=== PATIENT | male | born 1970 | race Caucasian/White ===

== ENCOUNTER → 2016-09-02 | Outpatient (CLI) | payer BC ==
--- NOTE | 2016-09-02 11:09 | MR ---
EXAMINATION TYPE: MR lumbar spine wo con DATE OF EXAM: 09/02/2016 9:20 AM COMPARISON: NONE HISTORY: Low back pain TECHNIQUE: Multiplanar, multisequence images of the lumbar spine were acquired. T12-L1 shows a small right posterior paracentral disc bulge causing some minimal anterolateral mass e ffect on the thecal sac. L1-L2: Small circumferential disc bulge causes slight anterior mass effect on the thecal sac, no sign ificant central stenosis or foraminal encroachment. L2-L3: There is a central posterior disc herniation causing anterior mass effect on the thecal sac wi th only mild central stenosis. No significant foraminal encroachment. L3-L4: Normal disc appearance without desiccation. No herniation, protrusion or disc bulging. No ca nal stenosis is present. Circumferential extension of endplate disc complex causes some foraminal enc roachment, there may be short pedicles. L4-L5: Normal disc appearance without desiccation. No herniation, protrusion or disc bulging. No ca nal stenosis is present. There is some facet arthropathy change bilaterally. Circumferential extensio n endplate disc complex contributes to cause some foraminal encroachment bilaterally. L5-S1: There is anterolisthesis grade 1 L5-S1. Bilateral spondylolysis L5 is present. Listhesis contr ibutes to cause bilateral foraminal encroachment, no significant central stenosis or sizable disc her niation. Facet arthropathy changes present. There is multilevel spondylosis. Some associated loss of disc height and signal is greatest at L5-S1, L2-3, L1-2, T12-L1 and associated endplate disc signal change. No paraspinal masses are identified. Conus medullaris has a normal appearance. IMPRESSION: Spondylolisthesis, spondylolysis as described L5-S1, multilevel degenerative disc disease, facet arth ropathy, foraminal encroachment.
== END | disposition home or self-care (01) ==
LOC: RADMRIMAIN 08:43
PROVIDERS: ATTEND Internal Medicine
DX: M43.17 Spondylolisthesis, lumbosacral region (principal); M51.36 Other intervertebral disc degeneration, lumbar region; M46.96 Unspecified inflammatory spondylopathy, lumbar region
CPT/HCPCS: 72148

== ENCOUNTER 2019-01-20 10:40 | Emergency (ER) | payer BC ==
--- NOTE | 2019-01-20 11:08 | ED ---
Upper Extremity HPI - General Chief Complaint: Extremity Injury, Upper Stated Complaint: Shoulder pain Time Seen by Provider: 01/20/19 10:55 Source: patient Mode of arrival: ambulatory Limitations: no limitations - History of Present Illness Initial Comments: Patient is a 48-year-old male complaining to the emergency Department with complaints of left shoulder pain since yesterday. Patient states he was attempting to lower a Rototiller off of a ramp when it slipped off to the side and he attempted to hold onto it and not let it Over with his left arm. Patient states he had a pain in his left bicep area that did wake him up during the night. Patient states he wants to make sure he didn't tear anything. Patient has no previous injuries of his left shoulder. Patient states he is right-hand dominant. No other complaints at this time. - Related Data Home Medications Medication Instructions Recorded Confirmed Atorvastatin Calcium [Lipitor] 40 mg PO HS 10/08/16 01/20/19 Citalopram Hydrobromide [CeleXA] 40 mg PO DAILY 01/20/19 01/20/19 Ibuprofen [Motrin] 800 mg PO TID PRN 01/20/19 01/20/19 Lisinopril-Hctz 20-12.5 mg 1 tab PO DAILY 01/20/19 01/20/19 [Zestoretic 20-12.5] Allergies Allergy/AdvReac Type Severity Reaction Status Date / Time Penicillins Allergy throat and Verified 01/20/19 11:17 face swelling Review of Systems ROS Statement: Those systems with pertinent positive or pertinent negative responses have been documented in the HPI. ROS Other: All systems not noted in ROS Statement are negative. Past Medical History Past Medical History: Hyperlipidemia, Hypertension, Skin Disorder Additional Past Medical History / Comment(s): hx pain LRQ of abdomen, rash on cheek, History of Any Multi-Drug Resistant Organisms: None Reported Additional Past Surgical History / Comment(s): lump removed from neck age 1, Past Anesthesia/Blood Transfusion Reactions: No Reported Reaction Past Psychological History: Anxiety Smoking Status: Former smoker Past Alcohol Use History: None Reported Past Drug Use History: None Reported - Past Family History Sister(s) Family Medical History: Cancer Mother Family Medical History: Deep Vein Thrombosis (DVT), Pulmonary Embolus General Exam - General Exam Comments Initial Comments: GENERAL: Well-appearing, well-nourished and in no acute distress. HEAD: Atraumatic, normocephalic. EYES: Pupils equal round and reactive to light, extraocular movements intact, sclera anicteric, conjunctiva are normal. ENT: TMs normal, nares patent, oropharynx clear without exudates. Moist mucous membranes. NECK: Normal range of motion, supple without lymphadenopathy or JVD. LUNGS: Breath sounds clear to auscultation bilaterally and equal. No wheezes rales or rhonchi. HEART: Regular rate and rhythm without murmurs, rubs or gallops. ABDOMEN: Soft, nontender, normoactive bowel sounds. No guarding, no rebound. No masses appreciated. : Deferred EXTREMITIES: Patient has full range of motion of his left shoulder with soreness at the end ranges. Patient is neurovascular intact. Biceps strength is 5 out of 5 on left. No pitting or edema. No clubbing or cyanosis. NEUROLOGICAL: Cranial nerves II through XII grossly intact. Normal speech, normal gait. PSYCH: Normal mood, normal affect. SKIN: Warm, Dry, normal turgor, no rashes or lesions noted. Limitations: no limitations Course Vital Signs 01/20/19 01/20/19 10:42 13:10 Temperature 98.2 F 97.9 F Pulse Rate 90 83 Respiratory 18 16 Rate Blood Pressure 133/88 123/86 O2 Sat by Pulse 99 98 Oximetry Medical Decision Making - Medical Decision Making Patient is a 48-year-old male complains of left shoulder pain after trying to st op a large rotor tiller from falling off of a ramp. Patient's pain is located in the anterior aspect of the left shoulder and biceps tendon. On exam patient has full range of motion of his left shoulder. Patient is neurovascular intact. Patient is tender over the bicipital groove, and the proximal biceps muscle. X-ray showed no acute fractures or dislocations. Was discussed with patient has is most likely a muscle strain or mild tendon injury. Patient will follow up with his PCP as needed for continued pain. Patient will ice the area and take ibuprofen for pain relief. Return parameters were discussed with the patient and he verbalized understanding. Case discussed with Dr. Islas. Disposition Clinical Impression: Left shoulder pain Disposition: HOME SELF-CARE Condition: Stable Instructions (If sedation given, give patient instructions): Shoulder Pain (ED) Additional Instructions: Please return to the Emergency Department if symptoms worsen or any other concerns. Follow-up with PCP as needed. Is patient prescribed a controlled substance at d/c from ED?: No Referrals: None,Stated [Primary Care Provider] - 1-2 days
--- NOTE | 2019-01-20 11:48 | XR ---
EXAMINATION TYPE: XR shoulder complete LT DATE OF EXAM: 01/20/2019 CLINICAL HISTORY: Left shoulder pain TECHNIQUE: Three views of the left shoulder are obtained. COMPARISON: None. FINDINGS: There is no acute fracture/dislocation evident in the left shoulder. The acromioclavicula r demonstrates mild acromioclavicular arthropathy with small marginal osteophytes. The glenohumeral j oint space appears within normal limits. The visualized ribs are intact and unremarkable. IMPRESSION: There is no acute fracture or dislocation in the left shoulder.
[2019-01-20 13:11] VITALS: BP 123/86; PULSE 83; RESP 16; TEMP 97.9
== END 2019-01-20 13:10 | disposition home or self-care (01) ==
LOC: SUPCPDRO 10:40 → EC 10:40
DX: M25.512 Pain in left shoulder (principal); E78.5 Hyperlipidemia, unspecified; I10 Essential (primary) hypertension; F41.9 Anxiety disorder, unspecified; Z87.891 Personal history of nicotine dependence; Z88.0 Allergy status to penicillin; Z79.899 Other long term (current) drug therapy; X50.0XXA Overexertion from strenuous movement or load, initial encounter; Y93.89 Activity, other specified
CPT/HCPCS: 99283

== ENCOUNTER → 2020-07-23 | Outpatient (CLI) | payer BC ==
--- NOTE | 2020-07-23 11:51 | XR ---
Lumbar spine HISTORY: Low back pain 3 views lumbar spine, correlation MR lumbar spine 09/02/2016 There is multilevel spondylosis. Lumbar vertebral bodies show preserved height, alignment, and bone m ineralization. There is loss of disc height and intervertebral level L5-S1, there is anterolisthesis grade 1 to grade 2 L5-S1. There is bilateral spondylolysis at L5. Vacuum disc phenomenon also noted. Some minimal blunting the posterior costophrenic angle noted incidentally. Sclerosis present in the p osterior elements of the lumbar spine. IMPRESSION: Spondylolysis, spinal listhesis, degenerative disc disease. Facet arthropathy. There may be a small pleural effusion.
== END | disposition home or self-care (01) ==
LOC: RADXRMAIN 11:29
PROVIDERS: ATTEND Internal Medicine Geriatric Medicine
DX: M43.16 Spondylolisthesis, lumbar region (principal); M51.36 Other intervertebral disc degeneration, lumbar region; M47.816 Spondylosis without myelopathy or radiculopathy, lumbar region
CPT/HCPCS: 72100

== ENCOUNTER → 2020-08-24 | Outpatient (CLI) | payer BC ==
--- NOTE | 2020-08-24 09:14 | MR ---
EXAMINATION TYPE: MR lumbar spine wo con DATE OF EXAM: 08/24/2020 COMPARISON: MRI lumbar spine September 02, 2016. Lumbar spine x-ray July 23, 2020 HISTORY: Low back pain for 3 to 4 years per patient, lumbago. Pain into bilateral buttocks per patien t. TECHNIQUE: Multiplanar, multisequence imaging of the lumbar spine is performed without IV contrast. FINDINGS: Sagittal images of the lumbar spine show vertebral body heights to remain satisfactory. Per sistent stable grade 1 anterolisthesis L5 on S1. Multilevel disc desiccation redemonstrated. Mild di sc space narrowing L5-S1 level redemonstrated. The conus medullaris remains normal in position ending at L1 level. Mild multilevel anterior spurring. Heterogeneous Modic type II endplate change and ante rior superior L2 endplate. Axial images at the T12-L1 level shows mild to moderate broad disc bulge with central disc protrusion component effacing the anterior thecal sac. No significant change from prior. Axial images at L1-L2 show mild broad disc bulge minimally effaces the anterior thecal sac, no signif icant change from prior. Axial images at L2-L3 level show moderate to advanced broad disc bulge with central disc protrusion c omponent effacing the anterior thecal sac and mild left-sided anterior inferior neural foraminal narr owing. No significant change from prior. Axial images at L3-L4 level show mild broad disc bulge. Spinal canal preserved. Neural foramina are p atent. No significant change from prior. Axial images at L4-L5 level show mild to moderate broad disc bulge and facet arthropathy bilaterally. Spinal canal is preserved. There is fairly moderate bilateral neural foraminal narrowing redemonstra ema. Some encroachment on exiting bilateral L4 nerves felt to be demonstrated on sagittal images, thi s is less well visualized on axial images. Axial images at L5-S1 levels with spondylolisthesis secondary to bilateral pars defects. Spinal canal preserved. Moderate bilateral facet arthropathy. Moderate to severe bilateral neural foraminal narro wing likely encroaching on exiting bilateral nerve on axial and sagittal images. No significant gomez e from prior. Paraspinal muscle bulk preserved. Stable cystic prominence left kidney favoring central parapelvic cy sts and extrarenal pelvis over hydronephrosis. IMPRESSION: Stable spondylolisthesis L5-S1 level. Stable multilevel degenerative changes greatest at L2-L3, L4-L5, and L5-S1 levels as detailed above.
== END ==
LOC: RADMRIMAIN 08:07
PROVIDERS: ATTEND Psychiatry & Neurology Neurology
DX: M43.17 Spondylolisthesis, lumbosacral region (principal); M51.25 Other intervertebral disc displacement, thoracolumbar region
CPT/HCPCS: 72148

== ENCOUNTER → 2020-11-02 | Outpatient (CLI) | payer BC ==
--- NOTE | 2020-11-02 07:27 | US ---
EXAMINATION TYPE: US kidneys/renal and bladder DATE OF EXAM: 11/02/2020 COMPARISON: MRI 08/24/2020 CLINICAL HISTORY: N28.1 Acquired multiple cysts of kidney. Renal cysts. EXAM MEASUREMENTS: Right Kidney: 12.9 x 6.7 x 6.5 cm Left Kidney: 12.6 x 6.4 x 6.2 cm No renal cysts identified. Right Kidney: No hydronephrosis or masses seen Left Kidney: No hydronephrosis or masses seen Bladder: wnl Bilateral Jets seen: No There is no evidence for hydronephrosis at this point in time. No nephrolithiasis is seen. No maria luisa s are identified. The urinary bladder is anechoic. Symmetric size of the kidneys. IMPRESSION: Normal size kidneys without hydronephrosis or nephrolithiasis.
== END | disposition home or self-care (01) ==
LOC: RADUSWWP 07:04
PROVIDERS: ATTEND Internal Medicine Geriatric Medicine
DX: N28.1 Cyst of kidney, acquired (principal)
CPT/HCPCS: 76770

== ENCOUNTER → 2022-06-06 | Outpatient (CLI) | payer BC ==
--- NOTE | 2022-06-06 11:59 | XR ---
EXAM TYPE: LUMBAR SPINE X RAY SERIES COMPARISON: 07/23/2020, 06/26/2021 HISTORY: Pain TECHNIQUE: 4 views are submitted. FINDINGS: Alignment is anatomic. The pedicles are intact. The transverse processes are intact. There is no h ypertrophic and multilevel degenerative disc disease with grade 1 anterolisthesis L5 on S1 with suspe cted bilateral spondylolysis. Multilevel facet arthropathy. Foraminal encroachment L4-5 and L5-S1. Se magdalena degenerative disc disease L5-S1 and T12-L1. IMPRESSION: 1. Bilateral spondylolysis with grade 1 anterolisthesis L5 on S1. 2. Multilevel degenerative disc disease and spurring. Facet arthropathy pronounced at L4-5 and L5-S1 with suspected bilateral foraminal encroachment at these levels
== END | disposition home or self-care (01) ==
LOC: RADXRMAIN 11:30
PROVIDERS: ATTEND Internal Medicine
DX: M47.27 Other spondylosis with radiculopathy, lumbosacral region (principal); M51.16 Intervertebral disc disorders with radiculopathy, lumbar region; M43.17 Spondylolisthesis, lumbosacral region
CPT/HCPCS: 72110

== ENCOUNTER → 2024-04-27 | Outpatient (CLI) | payer BC ==
--- NOTE | 2024-04-28 10:09 | CA ---
Transthoracic Echo Report Name: Michael Levy Age: 54 Gender: M : 1970 Exam Date: 04/27/2024 17:48 Exam Location: [facility] Ht (in): 68 Wt (lb): 205 Ordering Physician: Tobi Lorenzo MD Attending/Referring Phys: Tobi Lorenzo MD Ground Equipment Mechanic Minal Dill, TALISHA Procedure CPT: Indications: Z01.810 PREPROCEDURAL CARDIOVASC EXAM Cardiac Hx: Technical Quality: Fair Contrast 1: Total Dose (mL): Contrast 2: Total Dose (mL): MEASUREMENTS (Male / Female) Normal Values 2D ECHO LV Diastolic Diameter PLAX 5.2 cm 4.2 - 5.9 / 3.9 - 5.3 cm LV Systolic Diameter PLAX 3.6 cm IVS Diastolic Thickness 1.1 cm 0.6 - 1.0 / 0.6 - 0.9 cm LVPW Diastolic Thickness 1.0 cm 0.6 - 1.0 / 0.6 - 0.9 cm LV Relative Wall Thickness 0.4 RV Internal Dim ED PLAX 3.1 cm LA Systolic Diameter LX 3.8 cm 3.0 - 4.0 / 2.7 - 3.8 cm LV Diastolic Volume MOD 4C 103.8 cm??? LV Systolic Volume MOD 4C 44.5 cm??? LV Ejection Fraction MOD 4C 57.2 % LV Cardiac Index MOD 4C 2662.1 cm???/min???m??? LV Diastolic Length 4C 8.5 cm LV Systolic Length 4C 7.3 cm LV Diastolic Volume MOD 2C 126.1 cm??? LV Systolic Volume MOD 2C 50.4 cm??? LV Ejection Fraction MOD 2C 60.0 % LV Cardiac Index MOD 2C 3394.2 cm???/min???m??? LV Diastolic Length 2C 9.2 cm LV Systolic Length 2C 7.4 cm M-MODE Aortic Root Diameter MM 4.4 cm LA Systolic Diameter MM 2.3 cm LA Ao Ratio MM 0.5 DOPPLER AV Peak Velocity 185.4 cm/s AV Peak Gradient 13.8 mmHg AV Mean Velocity 119.0 cm/s AV Mean Gradient 6.4 mmHg AV Velocity Time Integral 30.2 cm AI Peak Velocity 313.1 cm/s AI Peak Gradient 39.2 mmHg AI Pressure Half Time 484.1 ms LVOT Peak Velocity 158.7 cm/s LVOT Peak Gradient 10.1 mmHg LVOT Velocity Time Integral 26.8 cm Mitral E Point Velocity 89.0 cm/s Mitral A Point Velocity 98.3 cm/s Mitral E to A Ratio 0.9 MV Deceleration Time 256.8 ms MV E' Velocity 10.1 cm/s Mitral E to MV E' Ratio 8.8 FINDINGS Left Ventricle Left ventricular ejection fraction is estimated at 55-60 %. Left ventricular cavity size normal. Mildly increased septal wall thickness. Normal left ventricular wall motion. Right Ventricle Normal right ventricular size and function. Unable to estimate the right ventricular systolic pressure. Right Atrium Normal right atrial size. No right atrial thrombus or mass seen. Left Atrium Normal left atrial size. No left atrial thrombus or mass present. Mitral Valve Structurally normal mitral valve. No mitral stenosis, regurgitation or prolapse. Aortic Valve Aortic valve not well visualized. Possible bicuspid aortic valve. Mild aortic regurgitation. Tricuspid Valve Structurally normal tricuspid valve. No tricuspid stenosis, regurgitation or prolapse. Pulmonic Valve Pulmonic valve not well visualized. Pericardium No pericardial or pleural effusion. Aorta Moderate aortic dilatation at the level of the sinuses of valsalva 41 mm. Ascending aorta aneurysm up to 47 mm CONCLUSIONS Normal LV function Ascending aortic and an aneurysm measuring 4.7 cm Mild aortic regurgitation with possible bicuspid aortic valve Previewed by: Dr. Cesar Julian MD (Electronically Signed) Final Date: 28 April 2024 10:08
== END | disposition home or self-care (01) ==
LOC: RADECHMAIN 17:41
PROVIDERS: ATTEND Internal Medicine
DX: Z01.810 Encounter for preprocedural cardiovascular examination (principal); I35.1 Nonrheumatic aortic (valve) insufficiency
CPT/HCPCS: 93306

== ENCOUNTER → 2024-05-06 | Outpatient (CLI) | payer BC ==
--- NOTE | 2024-05-06 12:19 | CT ---
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 MIP images are created and reviewed. CT DLP: 1018.[address] CTDI: mGy Automated exposure control for dose reduction was used. FINDINGS: There is marked dilatation of the aortic root measuring 4.6 cm. The ascending thoracic aorta is nondi lated and measures 3.8 cm. There is no cardiomegaly. There is no mediastinal, hilar or axillary adenopathy.2 the graft and no filling defects within the p ulmonary arterial circulation to suggest pulmonary embolism. There is no airspace consolidation or ab normal interstitial density. There is no pleural effusion or pneumothorax. There are no suspicious lung masses or nodules. No focal osseous lesions are seen in the osseous stru ctures are intact. IMPRESSION: 1. Marked dilatation of the aortic root which measures 4.6 cm. 2. No suspicious lung mass or nodule. 3. No acute cardiopulmonary disease. [facility], , 05/06/2024 12:17 PM
== END | disposition home or self-care (01) ==
LOC: RADCTMAIN 11:06
PROVIDERS: ATTEND Internal Medicine Interventional Cardiology
DX: I71.20 Thoracic aortic aneurysm, without rupture, unspecified (principal); Z86.79 Personal history of other diseases of the circulatory system
CPT/HCPCS: 71275; Q9967

== ENCOUNTER → 2024-06-30 | Outpatient (CLI) | payer BC | END | disposition home or self-care (01) | LOC: LABWHC1 10:44 | PROVIDERS: ATTEND Internal Medicine | DX: Z00.00 Encounter for general adult medical examination without abnormal findings (principal); E55.9 Vitamin D deficiency, unspecified; R73.03 Prediabetes; E78.2 Mixed hyperlipidemia; I10 Essential (primary) hypertension; Z79.899 Other long term (current) drug therapy; N40.0 Benign prostatic hyperplasia without lower urinary tract symptoms ==

== ENCOUNTER → 2024-06-30 | Outpatient (CLI) | payer BC ==
[2024-06-30 15:03] LABS: Basophils # (A) 0.07 X 10*3/uL (0.00-0.10); Basophils % (A) 0.6 %; Eosinophils # (A) 0.28 X 10*3/uL (0.04-0.35); Eosinophils % (A) 2.6 %; HCT 42.7 % (39.6-50.0); HGB 14.5 g/dL (13.0-17.0); Lymphocytes # (A) 3.43 X 10*3/uL (0.90-5.00); Lymphocytes % (A) 31.7 %; MCV 88.2 FL (80.0-97.0); Mean Platelet Volume 10.4 FL (9.5-12.2); Monocytes # (A) 0.97 X 10*3/uL (0.20-1.00); NRBC Per 100 WBC 0 X 10*3/uL (0.00-0.01); Neutrophils # (A) 6.04 X 10*3/uL (1.80-7.70); Neutrophils % (A) 55.7 %; Platelet Count 279 X 10*3/uL (140-440); RBC 4.84 X 10*6/uL (4.40-5.60); RDW 12.9 % (11.5-14.5); WBC 10.83 X 10*3/uL (4.50-10.00)
[2024-06-30 15:41] LABS: ALT 39 U/L (10-49); AST 25 U/L (14-35); Albumin 4.3 g/dL (3.8-4.9); Albumin/Globulin Ratio 2.05 Ratio (1.60-3.17); Alkaline Phosphatase 107 U/L (41-126); Blood Urea Nitrogen 15.6 mg/dL (9.0-27.0); Calcium 9.5 mg/dL (8.7-10.3); Carbon Dioxide 21.5 mmol/L (21.6-31.8); Chloride 100 mmol/L (96-109); Chol/HDL Ratio 3.21 Ratio; Globulin 2.1 g/dL (1.6-3.3); Glucose 114 mg/dL (70-110); LDL Cholesterol,Calculated 96.8 mg/dL (0.0-131.0); Magnesium 1.8 mg/dL (1.5-2.4); Prostate Specific Antigen 0.32 ng/mL (0.000-3.500); Sodium 133 mmol/L (135-145); Total Bilirubin 0.4 mg/dL (0.3-1.2); Total Protein 6.4 g/dL (6.2-8.2); Uric Acid 4.6 mg/dL (3.7-8.7); VLDL Calculation 13.28 mg/dL (5.00-40.00)
== END | disposition home or self-care (01) ==
LOC: LABPAT 10:47
PROVIDERS: ATTEND Internal Medicine
DX: Z01.812 Encounter for preprocedural laboratory examination (principal); I10 Essential (primary) hypertension; I35.1 Nonrheumatic aortic (valve) insufficiency; E78.2 Mixed hyperlipidemia; N40.0 Benign prostatic hyperplasia without lower urinary tract symptoms; E55.9 Vitamin D deficiency, unspecified; R73.03 Prediabetes; Z79.899 Other long term (current) drug therapy; Z22.322 Carrier or suspected carrier of Methicillin resistant Staphylococcus aureus
CPT/HCPCS: 80053; 80061; 82306; 83036; 83735; 84153; 84443; 84550; 85025

== ENCOUNTER → 2024-07-05 | Day surgery (SDC) | payer BC ==
[~2024-07-05] MED LIST: ALPRAZolam 0.25 MG TAB PO PRN; ALPRAZolam 0.5 MG TAB PO PRN; NITROGLYCERIN SL TABS 0.4 MG TAB SUBLINGUAL PRN; RX INFO: IV CONTRAST WAS GIVEN 1 EACH MISC MISCELLANE PRN; SODIUM CHLORIDE 0.9% 1,000 ML IV SCH
[2024-07-05] MEDS: ASPIRIN 325 MG TAB PO STA (05:54)
[2024-07-05] MEDS: SODIUM CHLORIDE 0.9% 1,000 ML in EMPTY BAG 1 BAG IV SCH (11:13)
[2024-07-05] MEDS: IV FLUID CONTINUATION 1,000 ML IV ONE ×3 (11:13→16:26)
[2024-07-05 11:31] VITALS: TEMP 98
[2024-07-05] MEDS: BENZOCAINE SPRAY 1 EACH MM ONE (12:17)
[2024-07-05] MEDS: fentaNYL (PF) 50 MCG/ML 2 ML AMP IVP ONE (12:46)
[2024-07-05] MEDS: MIDAZOLAM 2 MG/2 ML VIAL IVP ONE ×2 (12:46→13:05)
--- NOTE | 2024-07-05 12:56 | P.PCN ---
Date of Procedure: 07/05/24 Operative Findings: TRANSESOPHAGEAL ECHOCARDIOGRAM FENDER MECHANIC: YAZ MOORE MD, RPVI INDICATION: Rule out bicuspid valve SEDATION: Conscious sedation COMPLICATION: None LEVEL OF SEDATION Moderate sedation length of illness PROCEDURE DESCRIPTION: After obtaining an informed consent, the patient was brought to transesophageal echocardiogram room. Pulse oximetry and heart monitors were attached to the patient. The patient throat was sprayed using lidocaine. The patient was turned into left lateral position. After that a bite guard was placed. After an appropriate conscious sedation was initiated, the transesophageal echocardiogram was advanced through a bite guard into the mid esophagus. A 2-D echocardiogram images, color Doppler images, continuous wave images, pulse-wave images, of various cardiac structure were performed. After that the transesophageal echocardiogram probe was advanced into the stomach and fixed to obtain transgastric view was. The probe was brought into the mid esophagus. Inter-atrial septum was interrogated using 2D images, color Doppler images, and then contrast study. After that transesophageal echocardiogram was withdrawn out and upon withdrawing the descending thoracic aorta all the way up to the arch was evaluated. CONCLUSION: 1. Trileaflet aortic valve with mild to moderate aortic insufficiency only 2. Normal LV systolic function with no wall motion abnormalities 3. 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 Mildly dilated right atrium and right ventricle 5. Intact left atrial appendage 6. Dilated aortic root at 4.0 cm and ascending aorta at 3.8 cm
[2024-07-05] MEDS: LIDOCAINE 1% INJ 10MG/ML (20 ML MDV) SQ ONE (13:00)
[2024-07-05] MEDS: VERAPAMIL SYRINGE (5 MG/10 ML) INTRAARTER ONE (13:01)
[2024-07-05] MEDS: HEPARIN SODIUM 1,000 UN/ML (10ML VL) IVP ONE (13:05)
[2024-07-05] MEDS: HEPARIN SODIUM,PORCINE 10,000 UNIT in SODIUM CHLORIDE 0.9% 1,000 ML IRRIGATION PRN (13:07)
[2024-07-05] MEDS: HEPARIN SODIUM,PORCINE (1 ML) 2,500 UNIT in SODIUM CHLORIDE 0.9% 250 ML IRRIGATION PRN (13:07)
[2024-07-05] MEDS: IOPAMIDOL-370 100ML BTL INJ ONE (13:12)
--- NOTE | 2024-07-05 13:15 | P.PCN ---
Date of Procedure: 07/05/24 Operative Findings: CARDIAC CATHETERIZATION PERFORMING PHYSICIAN: Kenney Stewatr MD, RPVI PROCEDURE PERFORMED: 1. Selective right and left coronary angiogram 2. Left heart catheterization 3. Ultrasound-guided access of the right radial artery INDICATION: Symptomatic 54-year-old gentleman with abnormal stress test COMPLICATION: None APPROACH: Right radial artery LEVEL OF SEDATION: Moderate with a sedation length of 15 minutes PROCEDURE DESCRIPTION: After obtaining an informed consent, the patient was brought to cardiac cardiac catheterization technologist. Local anesthesia was performed using lidocaine subcutaneously. The right radial artery was cannulated using Seldinger technique, the guidewire passed easily, following that we advanced a 5-Singaporean sheath dilator assembly, the wire and dilator were removed and sheath was flushed. Following that, 2 mg of verapamil along with 5000 unit heparin were given. Selective right and left coronary angiogram using a 6-Singaporean JR4 and JL 3.5 catheters. Following that we did left heart catheterization using 6-Singaporean pigtail catheter. The procedure was completed there was no complication. SELECTIVE CORONARY ANGIOGRAM: The right coronary artery: Large-caliber vessel and a dominant vessel appears to be angiographically normal Left main: Is angiographically normal The left circumflex: Large-caliber vessel nondominant vessel seems to be normal and gives rise into OM1 which is normal and OM 2 which is also normal The left anterior descending artery: Large-caliber vessel appears to be angiographically normal as well HEMODYNAMICS: LVEDP was 5 mmHg with no significant gradient across the aortic valve CONCLUSION: 1. Normal coronary angiogram 2. Normal left-sided filling pressure POSTPROCEDURE MANAGEMENT: Medical treatment
[2024-07-05 16:16] VITALS: BP 105/60; PULSE 76; RESP 16
[2024-07-05] MEDS: ACETAMINOPHEN TAB 500 MG TAB PO STA (16:46)
== END ==
LOC: CATHCVL 10:44
PROVIDERS: ATTEND Internal Medicine Interventional Cardiology
DX: I35.1 Nonrheumatic aortic (valve) insufficiency (principal); I10 Essential (primary) hypertension; E78.5 Hyperlipidemia, unspecified; I77.819 Aortic ectasia, unspecified site; E66.3 Overweight; Q21.12 Patent foramen ovale; Z68.31 Body mass index [BMI] 31.0-31.9, adult; Z01.818 Encounter for other preprocedural examination; Z87.891 Personal history of nicotine dependence; Z88.0 Allergy status to penicillin; Z79.02 Long term (current) use of antithrombotics/antiplatelets; Z79.899 Other long term (current) drug therapy
CPT/HCPCS: 93312; 93320; 93325; 93458; C1769; C1894; J2250; J1644 ×3; J2003; J3010; Q9967

== ENCOUNTER → 2024-10-01 | Outpatient (CLI) | payer BC ==
[2024-10-01 16:29] LABS: Appearance,Urine Clear (Clear); Bilirubin,Urine Negative (Negative); Blood,Urine Negative (Negative); Color,Urine Colorless; Glucose,Urine (UA) Negative (Negative); Ketones,Urine Negative (Negative); Leukocyte Esterase,Urine Negative (Negative); Nitrite,Urine Negative (Negative); Protein,Urine Negative (Negative); Specific Gravity,Urine 1.006 (1.001-1.035); Urobilinogen,Urine <2.0 mg/dL (<2.0)
[2024-10-03 09:16] LABS: Protein, Total 6.4 g/dL (6.2-8.2)
[2024-10-03 10:59] LABS: Free Kappa Lt Chain Qnt, Serum 1.26 mg/dL (0.33-1.94)
== END | disposition home or self-care (01) ==
LOC: LABWHC1 10:34
PROVIDERS: ATTEND Internal Medicine
DX: R80.0 Isolated proteinuria (principal); R30.0 Dysuria
CPT/HCPCS: 36415; 81003; 83883; 84155; 84165; 86334; 86335

== ENCOUNTER → 2024-10-04 | Outpatient (CLI) | payer BC ==
--- NOTE | 2024-10-04 16:06 | US ---
EXAMINATION TYPE: US venous doppler duplex LE BI DATE OF EXAM: 10/04/2024 3:32 PM COMPARISON: NONE CLINICAL INDICATION: Male, 54 years old with history of R60.0 Bilateral lower extremity edema; Left c intermediate pain TECHNIQUE: The lower extremity deep venous system is examined utilizing real time linear array sonog nancy with graded compression, color doppler sonography, and spectral doppler. SIDE PERFORMED: Bilateral FINDINGS: VESSELS IMAGED: Common Femoral Vein Deep Femoral Vein Greater Saphenous Vein * Femoral Vein Popliteal Vein Small Saphenous Vein * Proximal Calf Veins (* superficial vessels) Right Leg: Appears negative for DVT Left Leg: Appears positive for DVT, scanned left calf at patient's area of concern - no flow seen an d unable to compress vessels which appear to be the peroneal veins Scanned left calf at patient's area of concern - 4.9 x 0.8 x 1.2cm fluid collection seen. No international trade analyst al color flow identified. IMPRESSION: 1. Positive for deep venous thrombosis of the left calf peroneal veins. 2. No deep venous thrombosis of the right lower extremity. 3. Fluid collection identified within the left calf at the patient's region of pain. This may repres ent a hematoma versus seroma with abscess not excluded. A Red level critical message alert has been initiated for Tobi Lorenzo MD via the [employer] System on 10/04/2024 4:03 PM. This message alert has been sent to Tobi Lorenzo MD via t preferences provided by the clinician for the receipt of Radiology Critical Findings. Message ID [id number]. [facility], , 10/04/2024 4:04 PM
== END | disposition home or self-care (01) ==
LOC: RADUSWWP 15:03
PROVIDERS: ATTEND Internal Medicine
DX: I82.4Z2 Acute embolism and thrombosis of unspecified deep veins of left distal lower extremity (principal)
CPT/HCPCS: 93970